=== PATIENT | female | born 1995 | race Caucasian/White ===

== ENCOUNTER 2016-07-30 22:48 | Emergency (ER) | payer OTHER ==
[~2016-07-30 22:48] MED LIST: PRENATAL1 TA1 PO
[2016-07-31 04:43] VITALS: BP 119/73
== END 2016-07-31 04:43 | disposition home or self-care (01) ==
LOC: ED 22:48
DX: S39.92XA Unspecified injury of lower back, initial encounter (principal); W26.8XXA Contact with other sharp object(s), not elsewhere classified, initial encounter; Y93.89 Activity, other specified; Y99.8 Other external cause status; Y92.89 Other specified places as the place of occurrence of the external cause
CPT/HCPCS: 90371; 90746

== ENCOUNTER 2016-11-13 21:32 | Emergency (ER) | payer OTHER ==
[2016-11-14 00:20] VITALS: BP 122/89
== END 2016-11-14 00:20 | disposition home or self-care (01) ==
LOC: ED 21:32
DX: R07.89 Other chest pain (principal)

== ENCOUNTER 2017-02-18 22:17 | Emergency (ER) | payer OTHER ==
[2017-02-18 23:47] LABS: microscopic required? NO
[2017-02-19 00:07] LABS: urine erythrocyte NEGATIVE (NEGATIVE)
[2017-02-19 01:25] VITALS: BP 119/72
== END 2017-02-19 01:25 | disposition home or self-care (01) ==
LOC: ED 22:17
PROVIDERS: Emergency Medicine
DX: R10.32 Left lower quadrant pain (principal); R11.0 Nausea; R39.15 Urgency of urination; R35.0 Frequency of micturition; E07.9 Disorder of thyroid, unspecified

== ENCOUNTER 2017-06-21 22:52 | Emergency (ER) | payer OTHER ==
[~2017-06-21] VITALS: Ht 152.4 cm; Wt 59.9 kg
[2017-06-21 22:58] VITALS: Ht 152.4 cm; Wt 59.9 kg
[2017-06-22 01:55] VITALS: BP 112/69
== END 2017-06-22 01:55 | disposition home or self-care (01) ==
LOC: ED 22:52
DX: R10.2 Pelvic and perineal pain (principal)

== ENCOUNTER 2017-10-05 22:11 | Emergency (ER) | payer OTHER ==
[~2017-10-05] VITALS: Ht 152.4 cm; Wt 60.3 kg
[2017-10-05 22:19] VITALS: Ht 152.4 cm; Wt 60.3 kg
[2017-10-06 00:31] LABS: microscopic required? NO
[2017-10-06 00:50] LABS: urine erythrocyte NEGATIVE (NEGATIVE)
[2017-10-06 00:51] LABS: BASOPHIL % 0.3 % (0-2); PLATELET COUNT 218 x10^3mcL (130-400); RED CELL DISTRIBUTION WIDTH 13.8 % (11.5-14.5)
[2017-10-06 00:53] LABS: CALCIUM 8.4 mg/dL (8.5-10.1); CARBON DIOXIDE 29.4 mmol/L (21-32); CHLORIDE SERUM 104 mmol/L (98-107); CREATININE SERUM 0.7 mg/dL (0.6-1.0); GFR1 > 60 mL/min; GLUCOSE SERUM 84 mg/dL (74-106); POTASSIUM SERUM 3.5 mmol/L (3.5-5.1); SODIUM SERUM 138 mmol/L (136-145)
[2017-10-06 00:59] LABS: ALBUMIN 3.9 g/dL (3.4-5.0); ALKALINE PHOSPHATASE 79 U/L (46-116); ALT/SGPT 16 U/L (14-59); AST/SGOT 16 U/L (15-37); BILIRUBIN TOTAL 0.3 mg/dL (0.20-1.00); TOTAL PROTEIN, SERUM 7.3 g/dL (6.4-8.2)
[2017-10-06 01:07] LABS: HCG SERUM QUALITATIVE NEGATIVE; HCG SERUM QUANTITATIVE 0 mIU/mL
[2017-10-06 03:31] VITALS: BP 116/68
== END 2017-10-06 03:31 | disposition home or self-care (01) ==
LOC: ED 22:11
PROVIDERS: Emergency Medicine
DX: N76.0 Acute vaginitis (principal); R51 Headache
CPT/HCPCS: 36415; 87491; 87591; J0696; J1885

== ENCOUNTER 2017-10-12 22:06 | Emergency (ER) | payer OTHER ==
[~2017-10-12] VITALS: Ht 152.4 cm; Wt 60.6 kg
[2017-10-12 23:23] VITALS: BP 114/66
== END 2017-10-12 23:23 | disposition home or self-care (01) ==
LOC: ED 22:06
DX: N76.0 Acute vaginitis (principal)

== ENCOUNTER 2018-03-29 09:06 | Emergency (ER) | payer OTHER ==
[~2018-03-29] VITALS: Ht 152.4 cm; Wt 60.8 kg
[2018-03-29 09:14] VITALS: BP 110/82; Ht 152.4 cm; Wt 60.8 kg
== END 2018-03-29 11:40 | disposition home or self-care (01) ==
LOC: ED 09:06
DX: J06.9 Acute upper respiratory infection, unspecified (principal)
CPT/HCPCS: J7613; Q0092

== ENCOUNTER 2018-04-30 09:00 | Emergency (ER) | payer OTHER ==
[~2018-04-30] VITALS: Ht 152.4 cm; Wt 60.3 kg
[2018-04-30 09:11] VITALS: BP 117/85; Ht 152.4 cm; Wt 60.3 kg
== END 2018-04-30 10:40 | disposition home or self-care (01) ==
LOC: ED 09:00
DX: J02.9 Acute pharyngitis, unspecified (principal); H92.01 Otalgia, right ear; Z98.890 Other specified postprocedural states

== ENCOUNTER 2018-08-02 15:02 | Emergency (ER) | payer OTHER ==
[~2018-08-02] VITALS: Ht 160 cm; Wt 60.3 kg
[2018-08-02 15:11] VITALS: BP 112/63; Ht 160 cm; Wt 60.3 kg
== END 2018-08-02 16:36 | disposition home or self-care (01) ==
LOC: ED 15:02
DX: L25.9 Unspecified contact dermatitis, unspecified cause (principal)

== ENCOUNTER 2019-01-26 12:21 | Emergency (ER) | payer OTHER ==
[~2019-01-26] VITALS: Ht 152.4 cm; Wt 61.7 kg
[2019-01-26 12:27] VITALS: Ht 152.4 cm; Wt 61.7 kg
[2019-01-26 14:35] LABS: microscopic required? YES; urine erythrocyte TRACE (NEGATIVE)
[2019-01-26 14:46] LABS: CALCIUM 8.4 mg/dL (8.5-10.1); CARBON DIOXIDE 29.9 mmol/L (21-32); CHLORIDE SERUM 105 mmol/L (98-107); CREATININE SERUM 0.7 mg/dL (0.6-1.0); GFR1 > 60 mL/min; GLUCOSE SERUM 84 mg/dL (74-106); POTASSIUM SERUM 3.5 mmol/L (3.5-5.1); SODIUM SERUM 140 mmol/L (136-145)
[2019-01-26 14:54] LABS: BASOPHIL % 0.3 % (0-2); PLATELET COUNT 229 x10^3mcL (130-400); RED CELL DISTRIBUTION WIDTH 15.7 % (11.5-14.5)
[2019-01-26 14:58] LABS: ALBUMIN 3.8 g/dL (3.4-5.0); ALKALINE PHOSPHATASE 78 U/L (46-116); AST/SGOT 21 U/L (15-37); TOTAL PROTEIN, SERUM 7.6 g/dL (6.4-8.2)
[2019-01-26 15:13] LABS: ALT/SGPT 22 U/L (14-59); BILIRUBIN TOTAL 0.7 mg/dL (0.20-1.00)
[2019-01-26 16:58] VITALS: BP 117/67
== END 2019-01-26 19:30 | disposition home or self-care (01) ==
LOC: ED 12:21
PROVIDERS: Emergency Medicine
DX: R42 Dizziness and giddiness (principal); R10.9 Unspecified abdominal pain; D64.9 Anemia, unspecified; R14.0 Abdominal distension (gaseous); N93.9 Abnormal uterine and vaginal bleeding, unspecified; N64.4 Mastodynia
CPT/HCPCS: 82962; J7030

== ENCOUNTER 2019-02-24 00:14 | Emergency (ER) | payer OTHER ==
[~2019-02-24] VITALS: Ht 167.6 cm; Wt 65.8 kg
[2019-02-24 00:18] VITALS: Ht 167.6 cm; Wt 65.8 kg
[2019-02-24 02:44] VITALS: BP 128/77
== END 2019-02-24 02:44 | disposition home or self-care (01) ==
LOC: ED 00:14
DX: J40 Bronchitis, not specified as acute or chronic (principal); N83.209 Unspecified ovarian cyst, unspecified side
CPT/HCPCS: J7512; J7613; J7644

== ENCOUNTER 2019-03-24 00:15 | Emergency (ER) | payer OTHER ==
[~2019-03-24] VITALS: Ht 152.4 cm; Wt 62.6 kg
[2019-03-24 00:19] VITALS: Ht 152.4 cm; Wt 62.6 kg
[2019-03-24 01:32] LABS: BASOPHIL % 0.2 % (0-2); PLATELET COUNT 233 x10^3mcL (130-400)
[2019-03-24 01:36] LABS: RED CELL DISTRIBUTION WIDTH 14.6 % (11.5-14.5)
[2019-03-24 03:13] VITALS: BP 119/69
== END 2019-03-24 04:35 | disposition home or self-care (01) ==
LOC: ED 00:15
PROVIDERS: Emergency Medicine
DX: N39.0 Urinary tract infection, site not specified (principal); Z98.890 Other specified postprocedural states
CPT/HCPCS: 36415; J1885; Q0092

== ENCOUNTER 2019-09-12 21:52 | Emergency (ER) | payer OTHER ==
[~2019-09-12] VITALS: Ht 152.4 cm; Wt 62.6 kg
[2019-09-12 21:58] VITALS: Ht 152.4 cm; Wt 62.6 kg
[2019-09-12 23:32] LABS: microscopic required? NO
[2019-09-12 23:58] LABS: BASOPHIL % 0.3 % (0-2); PLATELET COUNT 274 x10^3mcL (130-400); RED CELL DISTRIBUTION WIDTH 14.5 % (11.5-14.5); UA SPECIFIC GRAVITY 1.015 (1.005-1.035); urine erythrocyte NEGATIVE (NEGATIVE)
[2019-09-13 00:01] LABS: ALBUMIN 4.1 g/dL (3.4-5.0); ALKALINE PHOSPHATASE 72 U/L (46-116); ALT/SGPT 24 U/L (14-59); AMYLASE 59 U/L (25-115); AST/SGOT 22 U/L (15-37); BILIRUBIN TOTAL 0.8 mg/dL (0.20-1.00); CALCIUM 9.3 mg/dL (8.5-10.1); CARBON DIOXIDE 26.6 mmol/L (21-32); CHLORIDE SERUM 101 mmol/L (98-107); GFR1 > 60 mL/min; GLUCOSE SERUM 105 mg/dL (74-106); LIPASE 118 IU/L (73-393); POTASSIUM SERUM 3.6 mmol/L (3.5-5.1); SODIUM SERUM 138 mmol/L (136-145); TOTAL PROTEIN, SERUM 8.1 g/dL (6.4-8.2)
[2019-09-13 00:36] VITALS: BP 117/78
== END 2019-09-13 00:36 | disposition home or self-care (01) ==
LOC: ED 21:52
PROVIDERS: Specialist
DX: R10.813 Right lower quadrant abdominal tenderness (principal); E03.9 Hypothyroidism, unspecified
CPT/HCPCS: J1885; Q0092

== ENCOUNTER 2019-11-07 22:16 | Emergency (ER) | payer OTHER ==
[~2019-11-07] VITALS: Ht 152.4 cm; Wt 62.1 kg
[2019-11-07 22:27] VITALS: Ht 152.4 cm; Wt 62.1 kg
[2019-11-08 01:31] LABS: BASOPHIL % 0.3 % (0-2); PLATELET COUNT 224 x10^3mcL (130-400)
[2019-11-08 01:32] LABS: RED CELL DISTRIBUTION WIDTH 15.5 % (11.5-14.5)
[2019-11-08 01:35] LABS: CALCIUM 8.8 mg/dL (8.5-10.1); CARBON DIOXIDE 21.9 mmol/L (21-32); CHLORIDE SERUM 103 mmol/L (98-107); CREATININE SERUM 1.1 mg/dL (0.6-1.0); GFR1 > 60 mL/min; GLUCOSE SERUM 102 mg/dL (74-106); POTASSIUM SERUM 3.4 mmol/L (3.5-5.1); SODIUM SERUM 138 mmol/L (136-145)
[2019-11-08 01:36] LABS: microscopic required? YES; urine erythrocyte 1+ (NEGATIVE)
[2019-11-08 01:39] LABS: ALBUMIN 3.6 g/dL (3.4-5.0); ALKALINE PHOSPHATASE 65 U/L (46-116); ALT/SGPT 27 U/L (14-59); AST/SGOT 33 U/L (15-37); BILIRUBIN TOTAL 0.42 mg/dL (0.20-1.00); TOTAL PROTEIN, SERUM 7.2 g/dL (6.4-8.2)
[2019-11-08 04:02] VITALS: BP 115/73
== END 2019-11-08 04:02 | disposition home or self-care (01) ==
LOC: ED 22:16
PROVIDERS: Student in an Organized Health Care Education/Training Program
DX: N30.90 Cystitis, unspecified without hematuria (principal); N94.6 Dysmenorrhea, unspecified; E03.9 Hypothyroidism, unspecified
CPT/HCPCS: 87491; 87591; J1885; Q9967

== ENCOUNTER 2020-03-03 14:27 | Emergency (ER) | payer OTHER, SELFPAY ==
[~2020-03-03] VITALS: Ht 152.4 cm; Wt 62.1 kg
[2020-03-03 14:29] VITALS: Ht 152.4 cm; Wt 62.1 kg
[2020-03-03 17:00] VITALS: BP 121/89
== END 2020-03-03 17:00 | disposition home or self-care (01) ==
LOC: ED 14:27
DX: O99.511 Diseases of the respiratory system complicating pregnancy, first trimester (principal); B34.9 Viral infection, unspecified; Z3A.12 12 weeks gestation of pregnancy; Z20.828 Contact with and (suspected) exposure to other viral communicable diseases
CPT/HCPCS: U0003

== ENCOUNTER 2020-03-15 17:37 | Emergency (ER) | payer OTHER | END 2020-03-15 21:05 | disposition left against medical advice (07) | LOC: ED 17:37 | DX: Z53.21 Procedure and treatment not carried out due to patient leaving prior to being seen by health care provider (principal) ==

== ENCOUNTER 2020-03-15 21:25 | Emergency (ER) | payer OTHER ==
[~2020-03-15] VITALS: Ht 152.4 cm; Wt 62.1 kg
[2020-03-15 21:30] VITALS: BP 146/57; Ht 152.4 cm; Wt 62.1 kg
== END 2020-03-16 01:45 | disposition home or self-care (01) ==
LOC: ED 21:25
DX: O26.891 Other specified pregnancy related conditions, first trimester (principal); R10.9 Unspecified abdominal pain; E03.9 Hypothyroidism, unspecified; Z3A.15 15 weeks gestation of pregnancy